=== PATIENT | female | born 1985 | race Caucasian/White ===

== ENCOUNTER → 2017-03-05 | Outpatient (CLI) | payer MEDICAID ==
[~2017-03-05] MED LIST: FERROUS SULFAT325 M2 PO; IBUPROFEN400 MG PO; IRON TABLETS325 MG PO; MACROBID 100MG100 MG PO; MOTRIN 400MG.400 MG PO; NOMEDS; PRENATAL PLUS1 TA1 PO; ZANTAC 150150 MG PO; ZOFRAN24 MG PO; Zofran4 MG PO
[2017-03-05 15:45] LABS: BUN 11 mg/dL (7-18)
[2017-03-05 15:56] LABS: GFR (ESTIMATED) 85 ML/MIN (59-)
[2017-03-05 17:28] LABS: HEMOGLOBIN 13.6 g/dL (12.2-16.2); LYMPH # 2.8 K/mm3 (0.7-4.5)
== END ==
LOC: LAB 12:11
PROVIDERS: Otolaryngology
DX: J34.3 Hypertrophy of nasal turbinates (principal); J01.00 Acute maxillary sinusitis, unspecified; J01.20 Acute ethmoidal sinusitis, unspecified; Z01.812 Encounter for preprocedural laboratory examination

== ENCOUNTER 2017-03-28 06:10 | Day surgery (SDC) | payer MEDICAID ==
[~2017-03-28] VITALS: Ht 152.4 cm; Wt 99.8 kg
--- NOTE | 2017-03-28 08:50 | Anesthesia Record ---
Anesthesia Record Part I Total IV fluids: 1000 EBL (ml): 10 Urine Output: 0 B/P: 113/75 % SaO2: 95 Pulse: 100 Resps: 16 Temp: 97.6 Patient is: Drowsy, Stable Stable to PACU at: 0845 at 0849
--- NOTE | 2017-03-28 08:50 | Anesthesia Record ---
Anesthesia Record Part II Discharge time: 914 Destination: Same day surgery PACU nurse assessment review? Yes Patient is: Stable Anesthesia complications? No at 0824
--- NOTE | 2017-03-28 11:30 | Operative Note ---
Other ENT Procedure Date of Procedure: 03/28/17 Time of Procedure: 729 Procedure performed: 1. Functional endoscopic sinus surgery 2. bilateral submucous turbinectomies Pre-op diagnosis: 1. Chronic left maxillary sinusitis 2. Chronic bilateral ethmoid sinusities 3. Hypertrophied Right and left inferior turbinates Post-op diagnosis: same Surgeon: Enrike Long Anesthesia: general Pre-procedure antibiotics: Ancef 1 gm Pre-procedure steroid: Decadron 12 mg Description of procedure: With the patient under general anesthesia the face was prepped and draped. The eyes were protected with Steri-Strips. The nose was decongested with topical cocaine and 4 mL of 2 percent lidocaine with epi were injected into the nasal antral wall. Using endoscopic sinus surgical techniques, instruments, and scopes , a LEFT intranasal maxillary antrostomy was done. Mucosal thickening was removed from the LEFT maxillary sinus and the LEFT ostiomeatal complex was opened. All of the tissue that was removed was submitted and the LEFT maxillary sinus was irrigated until all of the returns were clear. Using the same instruments and scopes a LEFT total ethmoidectomy was done. The tissue that was removed was submitted. There was a moderate amount of mucosal thickening in the LEFT ethmoid. Similarly a RIGHT total ethmoidectomy was done and mucosal thickening was removed. There was a moderate amount of the mucosal thickening. Bleeding was stopped with suction cautery. Both inferior turbinates were hypertrophied. A RIGHT submucous inferior turbinectomy was done. And the the turbinate size was reduced by 50 percent. Bleeding was stopped with suction cautery. Similarly a LEFT submucous inferior turbinectomy was done and the turbinate size was reduced by 50 percent. Bleeding from the procedure was less than 10 mL. No packing was used. Cortisporin ointment was placed in the nasal vestibules and a drip pad dressing was applied. The patient was sent to recovery in good general condition. EBL (ml): 5 at 1130
[2017-03-28 12:05] VITALS: BP 128/93
== END 2017-03-28 10:30 | disposition home or self-care (01) ==
LOC: SDC 06:10
PROVIDERS: Otolaryngology
PROC: 09TU8ZZ Resection of Right Ethmoid Sinus, Via Natural or Artificial Opening Endoscopic (ICD-10-PCS; 2017-03-28)
PROC: 09TR8ZZ Resection of Left Maxillary Sinus, Via Natural or Artificial Opening Endoscopic (ICD-10-PCS; 2017-03-28)
PROC: 09TL8ZZ Resection of Nasal Turbinate, Via Natural or Artificial Opening Endoscopic (ICD-10-PCS; 2017-03-28)
PROC: 09TV8ZZ Resection of Left Ethmoid Sinus, Via Natural or Artificial Opening Endoscopic (ICD-10-PCS; principal; 2017-03-28 07:30)
DX: J32.2 Chronic ethmoidal sinusitis (principal); J32.0 Chronic maxillary sinusitis; J34.3 Hypertrophy of nasal turbinates; Z79.899 Other long term (current) drug therapy; J32.3 Chronic sphenoidal sinusitis
CPT/HCPCS: J2405; J2710

== ENCOUNTER → 2017-05-19 | Outpatient (CLI) | payer MEDICAID ==
[2017-05-19 17:41] LABS: HEMOGLOBIN 13.7 g/dL (12.2-16.2); LYMPH # 3.2 K/mm3 (0.7-4.5)
[2017-05-19 22:42] LABS: ABO BLOOD TYPE B; RH BLOOD TYPE POSITIVE
[2017-05-21 06:37] LABS: HBsAg Screen Negative (Negative); Hep C Virus Ab <0.1 (0.0-0.9)
[2017-05-21 07:38] LABS: HIV Screen 4th Generation wRfx Non Reactive (Non Reactive); Rubella Antibodies, IgG 1.77 index (Immune >0.99)
[2017-05-21 08:45] LABS: Rapid Plasma Reagin, Quant Non Reactive (NonRea<1:1)
== END ==
LOC: LAB 16:40
PROVIDERS: Nurse Practitioner Obstetrics & Gynecology
DX: Z34.80 Encounter for supervision of other normal pregnancy, unspecified trimester (principal)
CPT/HCPCS: G0432